=== PATIENT | female | born 1970 | race Caucasian/White ===

== ENCOUNTER 2017-10-01 09:58 | Emergency (ER) | payer OTHER ==
[~2017-10-01] VITALS: Ht 152.4 cm; Wt 54.4 kg
[2017-10-01] MEDS ORDERED: IBUPROFEN 400 MG TAB ONE (10:06)
[2017-10-01] MEDS ORDERED: TAMIFLU75 MG PO (10:09)
[2017-10-01] MEDS ORDERED: IBUPROFEN 400 MG TAB PO ONE (10:30)
== END 2017-10-01 10:39 | disposition home or self-care (01) ==
LOC: ER 09:58
DX: R50.9 Fever, unspecified (principal); R05 Cough; J11.1 Influenza due to unidentified influenza virus with other respiratory manifestations; J31.0 Chronic rhinitis